=== PATIENT | female | born 1965 | race Two or more races ===

== ENCOUNTER 2021-04-14 14:00 | Emergency (ER) | payer OTHER ==
[~2021-04-14] VITALS: Ht 160 cm; Wt 61.2 kg
[2021-04-14 14:15] VITALS: BP 110/69
[2021-04-14] MEDS ORDERED: CLIN300C12 PO (14:48)
[2021-04-14] MEDS ORDERED: KETOROLAC TROMETHAMINE INJ 30 MG/ML VIAL ONE (14:59)
[2021-04-14] MEDS: KETOROLAC TROMETHAMINE INJ 60 MG/2 ML VIAL IM ONE (15:04)
--- NOTE | 2021-04-14 15:15 | NUR ---
DPatient discharged to home in stable condition. Written and verbal after care instructions given. Patient verbalizes understanding of instruction.
== END 2021-04-14 15:20 | disposition home or self-care (01) ==
LOC: ER 14:07
DX: L03.317 Cellulitis of buttock (principal)
CPT/HCPCS: 96372; 99283; J1885